=== PATIENT | female | born 1945 | race Caucasian/White ===

== ENCOUNTER → 2020-07-14 | Outpatient (CLI) | payer MEDICARE, OTHER ==
[~2020-07-14] MED LIST: ACID REDUCER 1150 MG; ASPI81CH; ATOR10; Advil200 M1 PO; Aspirin EC81 MG; B Complex1 EAC2; Crutch1 EACH MISC; Divigel0.5 MG TD; ESTR1; ESTR2 PO; Estradiol1 MG PO; Flovent Diskus50 MCG; INDA2.5; IRBE75; ISODICACE; Indapamide2.5 MG; Inderal 20 mg T20 MG; Inderal 20 mg T20 MG PO; Klor-Con M1010 MEQ PO; LIVALO2 MG PO; MECL25 PO; MELO7.5 PO; NAPR500; Norco 5-325 Ta1 EACH PO; POTCHL10ER; POTCHL20ER PO; TOCO400; VALS80 PO; Vitamin D2000 UNIT PO; ZYRTEC10 M1 PO
[2020-07-14 12:56] LABS: Source, Urine Clean Catch
[2020-07-14 15:44] LABS: Appearance, Urine Cloudy (Clear); Bilirubin, Urine Neg (Neg); Blood, Urine 1+ (Neg); Color, Urine Yellow (P-Yellow); Glucose Qualitative, Urine Neg (Neg); Ketones, Urine Neg (Neg); Leukocyte Esterase, Urine Neg (Neg); Nitrite, Urine Neg (Neg); Protein, Urine Neg (Neg); Urobilinogen, Urine NORM (Normal)
[2020-07-14 16:09] LABS: Bacteria Many /hpf; Red Blood Cells, Urine Not Seen /hpf (0-2); Squamous Epithelial Cells Mod /hpf (Few); White Blood Cells, Urine 0-2 /hpf (0-5)
== END | disposition home or self-care (01) ==
LOC: LAB SHORT 10:30 → LAB 10:30
PROVIDERS: Nurse Practitioner Family
DX: R53.83 Other fatigue (principal)
CPT/HCPCS: 81001; 87086

== ENCOUNTER 2023-10-18 07:06 | Day surgery (SDC) | payer MEDICARE, OTHER ==
[2023-10-18] VITALS (14 sets, daily range): BP systolic 102–160; BP diastolic 48–101
[~2023-10-18] VITALS: Ht 165.1 cm; Wt 74.8 kg
[~2023-10-18 07:06] MED LIST changes: +Lactated Ringer's 1,000 ML IV SCH
[2023-10-18] MEDS ORDERED: propofoL 20 ML IV ONE (07:22)
[2023-10-18] MEDS ORDERED: PRAV20 PO (07:49)
[2023-10-18] MEDS ORDERED: PIOG15 PO (07:51)
--- NOTE | 2023-10-18 08:11 | NUR ---
History, Chart, Medications and Allergies reviewed before start of procedure. Patient states colon prep results clear. Patient confirms NPO status and agrees with scheduled surgery. Lungs clear T/O to Auscultation. Patient States Post-Procedure ride home has been arranged.
--- NOTE | 2023-10-18 09:19 | NUR ---
PT TO DAY SURGERY STEP DOWN FROM COLONOSCOPY. BEDSIDE REPORT RECEIVED. PT IS AWAKE, ALERT AND ORIENTED; ABLE TO MOVE SELF IN BED. VSS. PT HAS NO COMPLAINTS AT THIS TIME.
--- NOTE | 2023-10-18 09:30 | NUR ---
TOLERATING PO FLUIDS. Discharge instructions reviewed with patient. Patient verbalizes understanding. Copy given to patient to take home. Patient States Post-Procedure ride home has been arranged.
--- NOTE | 2023-10-18 09:38 | NUR ---
10/18/23 0938 Stepan August HISTORY, CHART, MEDICATIONS AND ALLERGIES REVIEWED BEFORE START OF PROCEDURE. PATIENT CONFIRMS NPO STATUS AND AGREES WITH SCHEDULED PROCEDURE. 3-LEAD EKG REVIEWED WITH PHYSICIAN PRIOR TO START OF PROCEDURE. MONITOR INTACT WITH CONTINUOUS PULSE OXIMETRY,CAPNOGRAPHY, 3-LEAD EKG, INTERMITTENT BP. SUPPLEMENTAL O2 TO BE TITRATED THROUGHOUT PROCEDURE TO MAINTAIN O2 SATURATION ABOVE 90%. PATIENT DETERMINED TO BE ASA APPROPRIATE FOR PROPOFOL SEDATION PRIOR TO START OF PROCEDURE BY DR. CRAFT.
--- NOTE | 2023-10-18 09:42 | NUR ---
Patient up to Ambulate independently. Gait steady. Discharged via wheelchair to private car for ride home.
== END 2023-10-18 09:43 | disposition home or self-care (01) ==
LOC: ORSCMMR 07:06 → ORD 08:00 → ORSCMMR 09:00
PROVIDERS: Internal Medicine Gastroenterology
PROC: 0DJD8ZZ Inspection of Lower Intestinal Tract, Via Natural or Artificial Opening Endoscopic (ICD-10-PCS; principal; 2023-10-18 09:00)
DX: Z12.11 Encounter for screening for malignant neoplasm of colon (principal); Z85.038 Personal history of other malignant neoplasm of large intestine; Z86.010 Personal history of colon polyps; K57.30 Diverticulosis of large intestine without perforation or abscess without bleeding; M62.89 Other specified disorders of muscle; E11.9 Type 2 diabetes mellitus without complications; F41.9 Anxiety disorder, unspecified; E78.00 Pure hypercholesterolemia, unspecified; Z79.82 Long term (current) use of aspirin; Z79.899 Other long term (current) drug therapy
CPT/HCPCS: 82947; J2704; J7120